=== PATIENT | male | born 1965 | race Caucasian/White ===

== ENCOUNTER 2017-10-17 18:00 | Emergency (ER) | payer SELFPAY ==
[~2017-10-17 18:00] MED LIST: PRED20 PO
[2017-10-17 18:10] VITALS: BP 200/90; PULSE 78; RESP 20; TEMP 99.9; O2SAT 99
[2017-10-17] MEDS ORDERED: ONDANSETRON ODT 4 MG TAB PO ONE (18:45)
[2017-10-17] MEDS ORDERED: ACETAMINOPHEN 325 MG TAB PO ONE (18:45)
--- NOTE | 2017-10-17 19:22 | PD ---
HPI Chief Complaint: Cold / Flu Symptoms Time Seen by Provider: 18:52 Travel History International Travel<30 days: No Contact w/Intl Traveler<30days: No Traveled to known affect area: No History of Present Illness HPI 52-year-old male presents to the ED for evaluation of 4 day history of loose stools, nausea, vomiting, 6/10 left upper abdominal pain. He can identify and no alleviating or exacerbating factors. Onset gradual. Patient endorses chronic sinus pressure, rhinorrhea, nonproductive cough. No worse today. He denies fever, chills, melena, hematochezia. Denies dysuria. He did not receive this years flu shot. He denies sick contacts. Treated at home with Pepto-Bismol with no improvement of symptoms. He endorses occasional alcohol use. Denies history of abdominal surgery. PFSH Past Medical History Hx Anticoagulant Therapy: No Cardiovascular Problems: No High Cholesterol: Yes Chemotherapy: No Cerebrovascular Accident: No Diabetes: No Respiratory: Yes (PLEURISY) ?: Not Past Surgical History Thoracic Surgery: Yes (sx for pleurisy) Other Surgery: Yes (PLEURAL EFFUSION) Social History Alcohol Use: Yes (occ) Tobacco Use: Yes (6-7 cigs per day) Substance Use: Yes Allergies-Medications (Allergen,Severity, Reaction): Coded Allergies: No Known Allergies (Unverified Allergy, Unknown, 10/17/17) Reported Meds & Prescriptions Reported Meds & Active Scripts Active Deltasone (Prednisone) 20 Mg Tab 20 Mg PO BID Review of Systems Except as stated in HPI: all other systems reviewed are Neg Physical Exam Narrative GENERAL: Well-nourished, well-developed white male in no acute distress. SKIN: Focused skin assessment warm/dry. HEAD: Normocephalic. EYES: No scleral icterus. No injection or drainage. NECK: Supple, trachea midline. No JVD or lymphadenopathy. CARDIOVASCULAR: Regular rate and rhythm without murmurs, gallops, or rubs. RESPIRATORY: Breath sounds clear and equal bilaterally. No accessory muscle use. GASTROINTESTINAL: Abdomen soft, nondistended. Tender to palpation in the epigastric area and left upper quadrant. Active bowel sounds. MUSCULOSKELETAL: No cyanosis, or edema. BACK: Nontender without obvious deformity. No CVA tenderness. Data Data Last Documented VS Vital Signs Date Time Temp Pulse Resp B/P (MAP) Pulse Ox O2 Delivery O2 Flow Rate FiO2 10/17/17 18:10 99.9 78 20 200/90 (126) 99 Orders Orders Influenzae A/B Antigen (10/17/17 18:38) Complete Blood Count With Diff (10/17/17 18:38) Comprehensive Metabolic Panel (10/17/17 18:38) Chest, Single Ap (10/17/17 ) Urinalysis - C+S If Indicated (10/17/17 18:38) Ondansetron Odt (Zofran Odt) (10/17/17 18:45) Acetaminophen (Tylenol) (10/17/17 18:45) Lipase (10/17/17 19:16) Ct Abd/Pel W Iv Contrast(Rout) (10/17/17 19:16) Iohexol 350 Inj (Omnipaque 350 Inj) (10/17/17 21:27) Sodium Chlor 0.9% 1000 Ml Inj (Ns 1000 M (10/17/17 22:15) Morphine Inj (Morphine Inj) (10/17/17 22:15) Sodium Chloride 0.9% Flush (Ns Flush) (10/17/17 22:15) Famotidine Inj (Pepcid Inj) (10/17/17 22:15) Labs Laboratory Tests Test 10/17/17 19:21 White Blood Count 10.5 TH/MM3 Red Blood Count 5.41 MIL/MM3 Hemoglobin 14.3 GM/DL Hematocrit 44.2 % Mean Corpuscular Volume 81.7 FL Mean Corpuscular Hemoglobin 26.5 PG Mean Corpuscular Hemoglobin Concent 32.4 % Red Cell Distribution Width 18.6 % Platelet Count 304 TH/MM3 Mean Platelet Volume 7.9 FL Neutrophils (%) (Auto) 80.9 % Lymphocytes (%) (Auto) 14.2 % Monocytes (%) (Auto) 4.1 % Eosinophils (%) (Auto) 0.3 % Basophils (%) (Auto) 0.5 % Neutrophils # (Auto) 8.5 TH/MM3 Lymphocytes # (Auto) 1.5 TH/MM3 Monocytes # (Auto) 0.4 TH/MM3 Eosinophils # (Auto) 0.0 TH/MM3 Basophils # (Auto) 0.1 TH/MM3 CBC Comment DIFF FINAL Differential Comment Blood Urea Nitrogen 15 MG/DL Creatinine 1.73 MG/DL Random Glucose 98 MG/DL Total Protein 8.5 GM/DL Albumin 4.4 GM/DL Calcium Level 9.8 MG/DL Alkaline Phosphatase 142 U/L Aspartate Amino Transf (AST/SGOT) 11 U/L Alanine Aminotransferase (ALT/SGPT) 9 U/L Total Bilirubin 0.6 MG/DL Sodium Level 137 MEQ/L Potassium Level 4.1 MEQ/L Chloride Level 103 MEQ/L Carbon Dioxide Level 26.5 MEQ/L Anion Gap 8 MEQ/L Estimat Glomerular Filtration Rate 42 ML/MIN [facility] Medical Decision Making Medical Screen Exam Complete: Yes Emergency Medical Condition: Yes Differential Diagnosis Gastritis versus pancreatitis versus cholecystitis versus bowel obstruction versus other Narrative Course 52-year-old male presents to the ED for evaluation of 4 day history of loose stools, nausea, vomiting, 6/10 left upper abdominal pain. Patient endorses chronic sinus pressure, rhinorrhea, nonproductive cough, no worse today. He did not receive this years flu shot. He denies sick contacts. He endorses occasional alcohol use. Denies history of abdominal surgery. Temperature 99.9 , BP 200/90 on presentation. On exam the patient is nontoxic appearing. There is tenderness to palpation in the epigastric region and left upper quadrant. Lab work, CT abdomen ordered and pending. Patient was administered ODT Zofran and Tylenol. Patient seen in the ambulance hallway, awaiting medical bed placement. Please see oncoming provider notes for disposition. Jovanna Dodd Oct 17, 2017 19:22
--- NOTE | 2017-10-17 19:36 | RADRPT ---
EXAM DATE/TIME: 10/17/2017 18:51 This report includes an Addendum and supersedes previous reports for this exam. [facility] COMPARISON: No previous studies available for comparison. INDICATIONS : Fever. Flu-like symptoms. MEDICAL HISTORY : None. SURGICAL HISTORY : None. ENCOUNTER: Initial ACUITY: 3 days PAIN SCORE: 3/10 LOCATION: Bilateral chest FINDINGS: A single view of the chest demonstrates the lungs to be symmetrically aerated without evidence of mas s, infiltrate or effusion. The cardiomediastinal contours are unremarkable. Osseous structures are intact. CONCLUSION: No acute disease. Clemente Patel MD on October 17, 2017 at 19:34 Board Certified Radiologist. This report was verified electronically. ADDENDUM: COMPARISON: CT ABDOMEN & PELVIS W/O CONTRAST, March 29, 2014, 15:02. Slight blunting of the left costophrenic angle appears to be chronic. Clemente Patel MD on October 17, 2017 at 19:37 Board Certified Radiologist. This report was verified electronically.
[2017-10-17 20:05] LABS: AUTOMATED NEUTROPHIL # 8.5 TH/MM3 (1.8-7.7); BASOPHIL # 0.1 TH/MM3 (0-0.2); BASOPHIL % 0.5 % (0.0-2.0); EOSINOPHIL % 0.3 % (0.0-4.0); HEMATOCRIT 44.2 % (39.0-51.0); HEMOGLOBIN 14.3 GM/DL (13.0-17.0); LYMPH % 14.2 % (9.0-44.0); LYMPHOCYTE # 1.5 TH/MM3 (1.0-4.8); MEAN CELL VOLUME 81.7 FL (80.0-100.0); MEAN CORPUSCULAR HEMOGLOBIN 26.5 PG (27.0-34.0); MEAN CORPUSCULAR HGB CONC 32.4 % (32.0-36.0); MEAN PLATELET VOLUME 7.9 FL (7.0-11.0); MONO % 4.1 % (0.0-8.0); MONOCYTE # 0.4 TH/MM3 (0-0.9); NEUT % 80.9 % (16.0-70.0); PLATELET COUNT 304 TH/MM3 (150-450); RED BLOOD COUNT 5.41 MIL/MM3 (4.50-5.90); RED CELL DISTRIBUTION WIDTH 18.6 % (11.6-17.2); WHITE BLOOD COUNT 10.5 TH/MM3 (4.0-11.0)
[2017-10-17 20:17] LABS: ALBUMIN 4.4 GM/DL (3.4-5.0); AST (GOT) 11 U/L (15-37); BICARBONATE 26.5 MEQ/L (21.0-32.0); BLOOD UREA NITROGEN 15 MG/DL (7-18); CALCIUM 9.8 MG/DL (8.5-10.1); CHLORIDE 103 MEQ/L (98-107); CREATININE 1.73 MG/DL (0.60-1.30); GLOMERULAR FILTRATION RATE 42 ML/MIN (>89); GLUCOSE,RANDOM 98 MG/DL (74-106); SODIUM (NA) 137 MEQ/L (136-145)
[2017-10-17 20:18] LABS: ALT (GPT) 9 U/L (12-78)
[2017-10-17 20:21] LABS: ALKALINE PHOSPHATASE 142 U/L (45-117); TOTAL BILIRUBIN ADULT 0.6 MG/DL (0.2-1.0); TOTAL PROTEIN 8.5 GM/DL (6.4-8.2)
[2017-10-17] MEDS ORDERED: IOHEXOL 350 MG/ML 10 ML VIAL (for RAD DIAG) IVCONTRAST ONE (21:27)
--- NOTE | 2017-10-17 22:10 | RADRPT ---
EXAM DATE/TIME: 10/17/2017 21:39 [facility] COMPARISON: No previous studies available for comparison. INDICATIONS : Abdomen pain. IV CONTRAST: 70 cc Omnipaque 350 (iohexol) IV ORAL CONTRAST: No oral contrast ingested. RADIATION DOSE: 9.32 CTDIvol (mGy) MEDICAL HISTORY : None SURGICAL HISTORY : None. ENCOUNTER: Initial ACUITY: 3 days PAIN SCALE: 7/10 LOCATION: Bilateral abdomen TECHNIQUE: Volumetric scanning of the abdomen and pelvis was performed. Using automated exposure control and ad justment of the mA and/or kV according to patient size, radiation dose was kept as low as reasonably achievable to obtain optimal diagnostic quality images. DICOM format image data is available electro nically for review and comparison. FINDINGS: LOWER LUNGS: The visualized lower lungs are clear. LIVER: Homogeneous density without lesion. There is no dilation of the biliary tree. No calcified gallston es. SPLEEN: Normal size without lesion. PANCREAS: Within normal limits. KIDNEYS: Normal in size and shape. There is no mass, stone or hydronephrosis. ADRENAL GLANDS: Within normal limits. VASCULAR: There is no aortic aneurysm. BOWEL/MESENTERY: The stomach, small bowel, and colon demonstrate no acute abnormality. There is no free intraperitone al air or fluid. ABDOMINAL WALL: Small fat containing umbilical or periumbilical hernia. RETROPERITONEUM: There is no lymphadenopathy. BLADDER: No wall thickening or mass. REPRODUCTIVE: Within normal limits. INGUINAL: There is no lymphadenopathy or hernia. MUSCULOSKELETAL: Within normal limits for patient age. CONCLUSION: No acute CT findings in the abdomen or pelvis. Small umbilical hernia. Clemente Patel MD on October 17, 2017 at 22:06 Board Certified Radiologist. This report was verified electronically.
[2017-10-17] MEDS ORDERED: FAMOTIDINE 20 MG/2 ML VIAL IV PUSH ONE (22:15)
[2017-10-17] MEDS ORDERED: ONDANSETRON HCL 4 MG/2 ML VIAL IV PUSH ONE (22:15)
[2017-10-17] MEDS ORDERED: MORPHINE SULFATE 2 MG/ML INJ IV PUSH ONE (22:15)
[2017-10-17] MEDS ORDERED: SODIUM CHLOR 0.9% 1000 ML INJ 1,000 ML IV ONE (22:15)
[2017-10-17] MEDS ORDERED: SODIUM CHLORIDE 0.9% FLUSH 10 ML FLUSH IV FLUSH PRN (22:15)
--- NOTE | 2017-10-17 22:17 | PD ---
HPI Chief Complaint: Cold / Flu Symptoms Time Seen by Provider: 21:41 Travel History International Travel<30 days: No Contact w/Intl Traveler<30days: No Traveled to known affect area: No History of Present Illness HPI 52-year-old male complains of abdominal pain with nausea vomiting and loose stool. Patient states that the abdominal pain started about 3 days ago. Patient stated a panic to be a cramping pain localized to upper abdomen epigastric area. Patient denies any pain radiation. Patient started having nausea vomiting and loose stool for the past 2 days. Patient denies any fever chills. Patient denies any dysuria or frequency. Patient denies any back pain. Patient denies any history of abdominal pain in the past. Patient denies any medical problem. Patient denies any alcohol or illicit drug abuse. On a scale of 1-10 the pain is a 9. 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 Patient states that he has not had not been taken any pain medication recently. PFSH Past Medical History Hx Anticoagulant Therapy: No Cardiovascular Problems: No High Cholesterol: Yes Chemotherapy: No Cerebrovascular Accident: No Diabetes: No Respiratory: Yes (PLEURISY) ?: Not Past Surgical History Thoracic Surgery: Yes (sx for pleurisy) Other Surgery: Yes (PLEURAL EFFUSION) Social History Alcohol Use: Yes (occ) Tobacco Use: Yes (6-7 cigs per day) Substance Use: Yes Allergies-Medications (Allergen,Severity, Reaction): Coded Allergies: No Known Allergies (Unverified Allergy, Unknown, 10/17/17) Reported Meds & Prescriptions Reported Meds & Active Scripts Active Deltasone (Prednisone) 20 Mg Tab 20 Mg PO BID Review of Systems General / Constitutional: No: Fever Eyes: No: Visual changes HENT: No: Headaches Cardiovascular: No: Chest Pain or Discomfort Respiratory: No: Shortness of Breath Gastrointestinal: Positive: Nausea, Vomiting, Diarrhea, Abdominal Pain Genitourinary: No: Dysuria Musculoskeletal: No: Pain Skin: No Rash Neurologic: No: Weakness Psychiatric: No: Depression Endocrine: No: Polydipsia Hematologic/Lymphatic: No: Easy Bruising Physical Exam Narrative GENERAL: Well-nourished, well-developed patient. SKIN: Focused skin assessment warm/dry. HEAD: Normocephalic. EYES: No scleral icterus. No injection or drainage. NECK: Supple, trachea midline. No JVD or lymphadenopathy. CARDIOVASCULAR: Regular rate and rhythm without murmurs, gallops, or rubs. RESPIRATORY: Breath sounds equal bilaterally. No accessory muscle use. GASTROINTESTINAL: Abdomen soft, nondistended. Patient has moderate tenderness to palpation epigastric area. No rebound tenderness. No mass. MUSCULOSKELETAL: No cyanosis, or edema. BACK: Nontender without obvious deformity. No CVA tenderness. Neurologic exam normal. Data Data Last Documented VS Vital Signs Date Time Temp Pulse Resp B/P (MAP) Pulse Ox O2 Delivery O2 Flow Rate FiO2 10/17/17 18:10 99.9 78 20 200/90 (126) 99 Orders Orders Influenzae A/B Antigen (10/17/17 18:38) Complete Blood Count With Diff (10/17/17 18:38) Comprehensive Metabolic Panel (10/17/17 18:38) Chest, Single Ap (10/17/17 ) Urinalysis - C+S If Indicated (10/17/17 18:38) Ondansetron Odt (Zofran Odt) (10/17/17 18:45) Acetaminophen (Tylenol) (10/17/17 18:45) Lipase (10/17/17 19:16) Ct Abd/Pel W Iv Contrast(Rout) (10/17/17 19:16) Iohexol 350 Inj (Omnipaque 350 Inj) (10/17/17 21:27) Sodium Chlor 0.9% 1000 Ml Inj (Ns 1000 M (10/17/17 22:15) Morphine Inj (Morphine Inj) (10/17/17 22:15) Sodium Chloride 0.9% Flush (Ns Flush) (10/17/17 22:15) Famotidine Inj (Pepcid Inj) (10/17/17 22:15) Ondansetron Inj (Zofran Inj) (10/17/17 22:15) Labs Laboratory Tests Test 10/17/17 19:21 White Blood Count 10.5 TH/MM3 Red Blood Count 5.41 MIL/MM3 Hemoglobin 14.3 GM/DL Hematocrit 44.2 % Mean Corpuscular Volume 81.7 FL Mean Corpuscular Hemoglobin 26.5 PG Mean Corpuscular Hemoglobin Concent 32.4 % Red Cell Distribution Width 18.6 % Platelet Count 304 TH/MM3 Mean Platelet Volume 7.9 FL Neutrophils (%) (Auto) 80.9 % Lymphocytes (%) (Auto) 14.2 % Monocytes (%) (Auto) 4.1 % Eosinophils (%) (Auto) 0.3 % Basophils (%) (Auto) 0.5 % Neutrophils # (Auto) 8.5 TH/MM3 Lymphocytes # (Auto) 1.5 TH/MM3 Monocytes # (Auto) 0.4 TH/MM3 Eosinophils # (Auto) 0.0 TH/MM3 Basophils # (Auto) 0.1 TH/MM3 CBC Comment DIFF FINAL Differential Comment Blood Urea Nitrogen 15 MG/DL Creatinine 1.73 MG/DL Random Glucose 98 MG/DL Total Protein 8.5 GM/DL Albumin 4.4 GM/DL Calcium Level 9.8 MG/DL Alkaline Phosphatase 142 U/L Aspartate Amino Transf (AST/SGOT) 11 U/L Alanine Aminotransferase (ALT/SGPT) 9 U/L Total Bilirubin 0.6 MG/DL Sodium Level 137 MEQ/L Potassium Level 4.1 MEQ/L Chloride Level 103 MEQ/L Carbon Dioxide Level 26.5 MEQ/L Anion Gap 8 MEQ/L Estimat Glomerular Filtration Rate 42 ML/MIN [facility] Medical Decision Making Medical Screen Exam Complete: Yes Emergency Medical Condition: Yes Interpretation(s) Last Impressions Chest X-Ray 10/17/17 0000 Signed Impressions: Service Date/Time: Tuesday, October 17, 2017 18:51 - CONCLUSION: No acute disease. Clemente Patel MD ADDENDUM: COMPARISON: CT ABDOMEN & PELVIS W/O CONTRAST, March 29, 2014, 15:02. Slight blunting of the left costophrenic angle appears to be chronic. Clemente Patel MD 22:14 PM. CBC within normal limits. Creatinine 1.73. AST 11. ALT 9. Alkaline phosphatase 142. Influenza AB antigen negative. Differential Diagnosis Differential diagnosis including gastroenteritis, gastritis, PUD, pancreatitis, cholecystitis, colitis, UTI, pyelonephritis, nephrolithiasis. Narrative Course 52-year-old male with abdominal pain and nausea vomiting diarrhea. Normal saline solution 1 L IV bolus. Zofran 4 mg IV. Morphine 2 mg IV. Pepcid 20 mg IV. Diagnosis Primary Impression: Abdominal pain Qualified Codes: R10.10 - Upper abdominal pain, unspecified Additional Impression: Gastroenteritis Patient Instructions: General Instructions Additional Instructions: Take medication as directed. Follow-up with personal physician. Return if worse. Med/Other Pt SpecificInfo: Prescription(s) given Scripts Dicyclomine (Bentyl) 10 Mg Cap 10 MG PO TID Y for Bowel Management, #21 CAP 0 Refills Prov: Siddharth Santiago MD 10/17/17 Pantoprazole (Protonix) 40 Mg Tab 40 MG PO DAILY for Reflux, #30 TAB 0 Refills Prov: Siddharth Santiago MD 10/17/17 Ondansetron Odt (Zofran Odt) 4 Mg Tab 4 MG SL Q6HR Y for Nausea/Vomiting, #10 TAB 0 Refills Prov: Siddharth Santiago MD 10/17/17 Disposition: 01 DISCHARGE HOME Condition: Stable Siddharth Santiago MD Oct 17, 2017 22:17
[2017-10-17] MEDS ORDERED: PROT40TA PO (22:23)
[2017-10-17] MEDS ORDERED: DICY10 PO (22:23)
[2017-10-17] MEDS ORDERED: ZOFR4TAB3 SL (22:23)
[2017-10-17 22:44] LABS: BILIRUBIN, URINE NEG (NEG); BLOOD, URINE MOD (NEG); GLUCOSE,URINE NEG (NEG); HYALINE CAST, URINE 18 /lpf (RARE); KETONE, URINE 10 mg/dL (NEG); MUCUS URINE FEW /lpf (OCC); NITRITE,URINE NEG (NEG); PH, URINE 5.5 (5.0-8.5); SQUAMOUS EPITHELIAL CELL URINE <1 /hpf (0-5); URINE COLOR YELLOW (YELLW/STRAW); URINE LEUKOCYTE ESTERASE TRACE (NEG)
== END 2017-10-17 23:21 | disposition home or self-care (01) ==
LOC: NEPD 18:00
DX: K52.9 Noninfective gastroenteritis and colitis, unspecified (principal); E78.00 Pure hypercholesterolemia, unspecified; Z72.0 Tobacco use
CPT/HCPCS: 71045; 74177; 80053; 81001; 83690; 85025; 87804; 96374; 96375; 99285; J2270; J2405; J7030; Q9967

== ENCOUNTER 2018-05-08 11:28 | Inpatient (IN) ==
[2018-05-08] MEDS ORDERED: Tetanus/Diphtheria Toxoid Adult Vaccine Inj 0.5 ML Vial IM ONE (13:25)
[2018-05-08] MEDS ORDERED: Ketorolac Inj 30 MG/ML (IVP) Vial IV.PUSH ONE (13:25)
[2018-05-08] MEDS ORDERED: Sod Chloride 0.9% Inj 1,000 ML IV.SIG SCH ×2 (13:30→16:45)
--- NOTE | 2018-05-08 14:10 | XR ---
EXAM DATE: 05/08/2018 1:52 PM EDT AGE/SEX: 52 years / Male INDICATIONS: Swollen, drainage, feverish right great toe. No known injury. CLINICAL DATA: This is the patient's initial encounter. Patient reports that signs and symptoms have been present for 4 - 6 days and indicates a pain score of 10/10. MEDICAL/SURGICAL HISTORY: None. None. COMPARISON: No prior exams available for comparison. FINDINGS: Erosive changes involving the DIP joint of the first digit that could be gout. Similar erosive change s are seen at the first metatarsal phalangeal joint. Similar degenerative changes are seen at the tar sometatarsal joints. CONCLUSION: Abnormalities as described above. Findings about the great toe could be gout. Correlation suggested. Electronically signed by: Sebas Hill MD 05/08/2018 2:09 PM EDT
[2018-05-08 14:29] LABS: Baso # (Auto) 0.1 th/mm3 (0.0-0.2); Baso % (Auto) 0.5 % (0.0-2.0); Eos # (Auto) 0.2 th/mm3 (0.0-0.4); Eos % (Auto) 2.2 % (0.0-4.0); Hematocrit 38.8 % (39.0-51.0); Hemoglobin 12.9 gm/dL (13.0-17.0); Lymph # (Auto) 1.4 th/mm3 (1.0-4.8); Mean Corpuscular HGB Conc 33.1 % (32.0-36.0); Mean Corpuscular Hemoglobin 29.8 pg (27.0-34.0); Mean Corpuscular Volume 89.9 fL (80.0-100.0); Mean Platelet Volume 8.2 fL (7.0-11.0); Mono # (Auto) 0.8 th/mm3 (0.0-0.9); Mono % (Auto) 7.6 % (0.0-8.0); Neut # (Auto) 8.4 th/mm3 (1.8-7.7); Neut % (Auto) 76.7 % (16.0-70.0); Platelet Count 253 th/mm3 (150-450); Red Blood Count 4.32 mil/mm3 (4.50-5.90); Red Cell Distribution Width 14.3 % (11.6-17.2)
[2018-05-08 14:53] LABS: Alanine Aminotransferase 11 U/L (12-78); Albumin 3.6 g/dL (3.4-5.0); Anion Gap 6 meq/L (5-15); Aspartate Aminotransferase 12 U/L (15-37); Blood Urea Nitrogen 20 mg/dL (7-18); Calcium 9.2 mg/dL (8.5-10.1); Carbon Dioxide 28.5 meq/L (21.0-32.0); Chloride 105 meq/L (98-107); Glomerular Filtration Rate 36 mL/min (>89); Glucose,Random 85 mg/dL (74-106); Potassium 4.3 meq/L (3.5-5.1); Sodium 139 meq/L (136-145)
[2018-05-08 14:56] LABS: Alkaline Phosphatase 121 U/L (45-117); Total Protein 7.9 g/dL (6.4-8.2)
[2018-05-08] MEDS ORDERED: Piperacil/Tazo 3.375 GM Premix 50 ML IV.SIG ONE (15:22)
[2018-05-08] MEDS ORDERED: Vancomycin Inj 1 GM/200 ML PIGGYBACK IV.SIG ONE (15:22)
[2018-05-08] MEDS ORDERED: Morphine Inj 4 MG/ML Vial IV.PUSH ONE (15:28)
--- NOTE | 2018-05-08 15:38 | ED ---
HPI General Chief Complaint: Extremity Injury, Lower Stated Complaint: R Big Toe Time Seen by Provider: 05/08/18 13:09 Source: patient Mode of arrival: ambulatory Limitations: no limitations History of Present Illness HPI Narrative: 52-year-old male, with history of gout, presents to the emergency department with complaint of redness, pain, swelling, drainage coming from his right great toe 3 days. Denies injury. Denies fever, vomiting. Denies paresthesias, loss of sensation to the affected extremity. Unknown tetanus status and needs it updated. Rates pain 5/10. Constantly aggravated. Worse with palpation, ambulation. Has been taking Aleve and took a morphine prior to arrival for symptom management. No primary care provider. No known allergies. History of gout. Denies other significant past medical history. Has no other medical complaints. No other modifying factors or associated signs and symptoms. Related Data Allergies Allergy/AdvReac Type Severity Reaction Status Date / Time No Known Allergies Allergy Verified 05/08/18 12:52 Review of Systems ROS: all other systems reviewed are negative PMFSH History History Provided By: Patient Medical History Medical History Gout (Acute) Pleural effusion (Acute) Surgical History Surgical History S/P thoracotomy (Acute) Family History Family History Other Gout Social History Social History Substance History: Past History Smoking Status: Current every day smoker Recent Travel [facility] within the Last 8 Weeks: No Recent Out of Country Travel within the Last 8 Weeks: No Exam Narrative Exam Narrative: GENERAL: Well-nourished, well-developed male patient, in no acute distress; afebrile, nontoxic-appearing SKIN: Warm and dry. Right foot great toe with extensive erythema and edema extending into the metatarsal region; toe is with 3 small punctuate areas that are draining purulent drainage; toe is fluctuant and the findings are consistent with abscess. Tender on palpation. Right Lower extremity supple and nontender with 2+ pedal pulses and sensory intact. No lymphangitis. HEAD: Atraumatic. Normocephalic. EYES: Pupils equal and round. No scleral icterus. No injection or drainage. ENT: Mucosa pink and moist. No erythema or exudates. NECK: Trachea midline. No lymphadenopathy. CARDIOVASCULAR: Regular rate. RESPIRATORY: No accessory muscle use. GASTROINTESTINAL: Flat. MUSCULOSKELETAL: No obvious deformities. No clubbing. No cyanosis. No edema. NEUROLOGICAL: Awake and alert. Oriented 3. No obvious cranial nerve deficits. Motor grossly within normal limits. Normal speech. Moves all extremities. 5/5 strength to all extremities. PSYCHIATRIC: Appropriate mood and affect; insight and judgment normal. Course Initial Documented Vital Signs Temperature 97.8 F 05/08/18 12:06 Pulse Rate 82 05/08/18 12:06 Respiratory Rate 18 05/08/18 12:06 Blood Pressure 121/65 05/08/18 12:06 Pulse Oximetry 100 05/08/18 12:06 Last Documented Vital Signs Temperature 98.8 F 05/08/18 18:38 Pulse Rate 75 05/08/18 18:38 Respiratory Rate 20 05/08/18 18:38 Blood Pressure 124/76 05/08/18 18:38 Pulse Oximetry 99 05/08/18 18:38 Medical Decision Making MDM Narrative Medical decision making narrative: 52-year-old male, with history of gout, presents to the emergency department with appearance of abscess to his right great toe and right foot cellulitis. The toe has a few open areas that are draining purulent drainage and is extremely swollen, erythematous and hot to touch. The erythema and edema does extend to the metatarsal region of the right foot. No lymphangitis. Patient is afebrile and nontoxic-appearing. IV, IV fluid bolus, CBC, CMP, lactic acid, Toradol, tetanus, wound culture ordered. 1525: I spoke with Dr. Foss, splitter machine and patient will be admitted; recommended indomethacin and indomethacin ordered; agreed with administration of Vanco and Zosyn. BUN 20. Creatinine 1.98. GFR 36. I reviewed up to date for vancomycin dosage and there is no adjustment necessary. I calculated the creatinine clearance using the Cockcroft-Gault and creatinine clearance is 53 mL /min; I reviewed up-to-date for Zosyn dosage and CrCl >40 mL/minute: No dosage adjustment necessary. Vancomycin, Zosyn, indomethacin, morphine, Zofran ordered. Call placed for patient admission. I spoke with ERNIE Diaz and report given for patient admission. Medical Screen Exam Complete: Yes Emergency Medical Condition: Yes Differential Diagnosis Differential Diagnosis: Infectious gouty arthritis, abscess of toe, foot cellulitis, gout attack Lab Data Result diagrams: 05/08/18 13:50 05/08/18 13:50 Lab Results 05/08/18 05/08/18 05/08/18 Range/Units 13:50 13:50 13:50 WBC 11.0 (4.0-11.0) th/mm3 RBC 4.32 L (4.50-5.90) mil/mm3 Hgb 12.9 L (13.0-17.0) gm/dL Hct 38.8 L (39.0-51.0) % MCV 89.9 (80.0-100.0) fL MCH 29.8 (27.0-34.0) pg MCHC 33.1 (32.0-36.0) % RDW 14.3 (11.6-17.2) % Plt Count 253 (150-450) th/mm3 MPV 8.2 (7.0-11.0) fL Neut % (Auto) 76.7 H (16.0-70.0) % Lymph % (Auto) 13.0 (9.0-44.0) % Norman % (Auto) 7.6 (0.0-8.0) % Eos % (Auto) 2.2 (0.0-4.0) % Baso % (Auto) 0.5 (0.0-2.0) % Neut # (Auto) 8.4 H (1.8-7.7) th/mm3 Lymph # (Auto) 1.4 (1.0-4.8) th/mm3 Norman # (Auto) 0.8 (0.0-0.9) th/mm3 Eos # (Auto) 0.2 (0.0-0.4) th/mm3 Baso # (Auto) 0.1 (0.0-0.2) th/mm3 WBC Differential . Differential Comment Auto diff final Sodium 139 (136-145) meq/L Potassium 4.3 (3.5-5.1) meq/L Chloride 105 (98-107) meq/L Carbon Dioxide 28.5 (21.0-32.0) meq/L Anion Gap 6 (5-15) meq/L BUN 20 H (7-18) mg/dL Creatinine 1.98 H (0.60-1.30) mg/dL Estimated GFR 36 L (>89) mL/min Random Glucose 85 (74-106) mg/dL Lactic Acid 1.0 (0.4-2.0) mmol/L Calcium 9.2 (8.5-10.1) mg/dL Total Bilirubin 0.8 (0.2-1.0) mg/dL AST 12 L (15-37) U/L ALT 11 L (12-78) U/L Alkaline Phosphatase 121 H (45-117) U/L Total Protein 7.9 (6.4-8.2) g/dL Albumin 3.6 (3.4-5.0) g/dL Imaging Data Radiologist's impression: Foot X-Ray 05/08/18 13:25 CONCLUSION: Abnormalities as described above. Findings about the great toe could be gout. Correlation suggested. Discharge Plan Discharge Disposition Patient Disposition: 30 Still Patient Discharge Condition Condition: Stable Discharge Details Diagnosis: Abscess of great toe of right foot, Cellulitis of foot, right, Gout attack Physicians Team ED Provider: Felix Verde ED Midlevel Provider: Ivy Arguello Primary Care Provider: Primary Care Cha Yang Attending Provider: Jermain Graves Other Providers: Oxana Foss Status ED Status: Left Department Discharge Information Discharge Date/Time: 05/08/18 18:07
[2018-05-08] MEDS ORDERED: Vancomycin Inj 1,000 MG in Sodium Chlor 0.9% Inj 250 ML IV.SIG ONE (16:00)
--- NOTE | 2018-05-08 16:43 | P.HP ---
History of Present Illness Primary Care Physician: No Primary Care Physician History of Present Illness: 52-year-old white male being admitted for septic arthritis Patient reports being in his usual state of health until about a few days ago and began experiencing increasing pain and swelling in his right toe associated with redness. Worsened with ambulation and progressed with time. Started draining a few days ago and thus decided come to the emergency department today. In the emergency department the patient has stable vital signs, was afebrile, had no leukocytosis. X-ray showed substantial erosions of the MTP joints. Was given vancomycin and Zosyn as well as ketorolac. Patient reports having baseline intermittent pain in his right great toe which he attributes to gout but denies having any puncture injuries in the last couple of days that he can recall. 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 PMF - History History Provided By: Patient - Medical History Medical History: Medical History (Last Updated 05/08/18 @ 16:42 by Jermain Graves MD) Gout Pleural effusion - Surgical History Surgical History: Surgical History (Last Updated 05/08/18 @ 16:43 by Jermain Graves MD) S/P thoracotomy - Family History Family History: Family History (Last Updated 05/08/18 @ 16:41 by Jermain Graves MD) Other Gout - Social History I have reviewed the patient's Social History: Yes - Tobacco History Smoking Status: Current every day smoker - Substance Use History Substance History: Past History - Travel History Recent Travel in the [facility] Within the Last 8 Weeks: No Recent Travel Out of the Country Within the Last 8 Weeks: No Medications and Allergies Active Medications: Active Medications Sodium Chloride (Ns Inj) 1,000 mls @ 0 mls/hr IV.SIG BOLUS [facility] Last Admin: 05/08/18 13:59 Dose: 1,000 mls/hr Vancomycin HCl 1,000 mg/ (Sodium Chloride) 250 mls @ 250 mls/hr IV.SIG ONCE ONE Stop: 05/08/18 16:59 Allergies Allergy/AdvReac Type Severity Reaction Status Date / Time No Known Allergies Allergy Verified 05/08/18 12:52 Exam Vital signs: Vital Signs 05/08/18 12:06 Temperature 97.8 F Pulse Rate 82 Respiratory Rate 18 Blood Pressure 121/65 Pulse Oximetry 100 Intake & Output 05/07/18 05/08/18 05/08/18 18:59 06:59 18:59 Weight 83.915 kg Narrative: VS: afebrile GENERAL: Well-nourished middle-age white male, lying in bed SKIN: Warm and dry. EYES: No scleral icterus. No injection or drainage. ENT: No nasal bleeding or discharge. CARDIOVASCULAR: Regular rate and rhythm. no murmurs RESPIRATORY: No accessory muscle use. Clear to auscultation. Breath sounds equal bilaterally. GASTROINTESTINAL: Abdomen soft, non-tender, nondistended. Extremities: Right great toe has substantial edema and pain with purulent drainage evident, erythema encompasses the entire toe and spans to the midfoot dorsally, remaining toes look normal MUSCULOSKELETAL: adequate muscle bulk and tone for age and habitus NEUROLOGICAL: Awake and alert. No obvious cranial nerve deficits. No facial droop nor slurred speech noted. PSYCHIATRIC: Appropriate mood and affect; insight and judgment normal. Results - Labs CBC & Chem 7: 05/08/18 13:50 05/08/18 13:50 Labs: Laboratory Results - last 24 hr 05/08/18 05/08/18 05/08/18 13:50 13:50 13:50 WBC 11.0 RBC 4.32 L Hgb 12.9 L Hct 38.8 L MCV 89.9 MCH 29.8 MCHC 33.1 RDW 14.3 Plt Count 253 MPV 8.2 Neut % (Auto) 76.7 H Lymph % (Auto) 13.0 [place] % (Auto) 7.6 Eos % (Auto) 2.2 Baso % (Auto) 0.5 Neut # (Auto) 8.4 H Lymph # (Auto) 1.4 [place] # (Auto) 0.8 Eos # (Auto) 0.2 Baso # (Auto) 0.1 WBC Differential . Differential Comment Auto diff final Sodium 139 Potassium 4.3 Chloride 105 Carbon Dioxide 28.5 Anion Gap 6 BUN 20 H Creatinine 1.98 H Estimated GFR 36 L Random Glucose 85 Lactic Acid 1.0 Calcium 9.2 Total Bilirubin 0.8 AST 12 L ALT 11 L Alkaline Phosphatase 121 H Total Protein 7.9 Albumin 3.6 - Imaging Impressions Foot X-Ray 05/08/18 13:25 CONCLUSION: Abnormalities as described above. Findings about the great toe could be gout. Correlation suggested. Caprini VTE Risk Assessment Caprini VTE Risk Assessment: Moderate/High Risk (score >= 2) VTE Pharmacological Exception Reason: High risk for bleeding Scar Risk Assessment Model: Point Value = 1 Point Value = 2 Point Value = 3 Point Value = 5 Age 41-60 Minor surgery BMI > 25 kg/m2 Swollen legs Varicose veins or History of unexplained or recurrent spontaneous Oral contraceptives or hormone replacement Sepsis (< 1 month) Serious lung disease, including pneumonia (< 1 month) Abnormal pulmonary function Acute myocardial infarction Congestive heart failure (< 1 month) History of inflammatory bowel disease Medical patient at bed rest Age 61-74 Arthroscopic surgery Major open surgery (> 45 min) Laparoscopic surgery (> 45 min) Malignancy Confined to bed (> 72 hours) Immobilizing plaster cast Central venous access Age >= 75 History of VTE Family history of VTE Factor V Leiden Prothrombin [id number] Lupus anticoagulant Anticardiolipin antibodies Elevated serum homocysteine Heparin-induced thrombocytopenia Other congenital or acquired thrombophilia Stroke (< 1 month) Elective arthroplasty Hip, pelvis, or leg fracture Acute spinal cord injury (< 1 month) Prophylaxis Regimen: Total Risk Factor Score Risk Level Prophylaxis Regimen 0-1 Low Early ambulation 2 Moderate Order ONE of the following: *Sequential Compression Device (SCD) *Heparin 5000 units SQ BID 3-4 Higher Order ONE of the following medications: *Heparin 5000 units SQ TID *Enoxaparin/Lovenox 40 mg SQ daily (WT < 150 kg, CrCl > 30 mL/min) *Enoxaparin/Lovenox 30 mg SQ daily (WT < 150 kg, CrCl > 10-29 mL/min) *Enoxaparin/Lovenox 30 mg SQ BID (WT < 150 kg, CrCl > 30 mL/min) AND/OR *Sequential Compression Device (SCD) 5 or more Highest Order ONE of the following medications: *Heparin 5000 units SQ TID (Preferred with Epidurals) *Enoxaparin/Lovenox 40 mg SQ daily (WT < 150 kg, CrCl > 30 mL/min) *Enoxaparin/Lovenox 30 mg SQ daily (WT < 150 kg, CrCl > 10-29 mL/min) *Enoxaparin/Lovenox 30 mg SQ BID (WT < 150 kg, CrCl > 30 mL/min) AND *Sequential Compression Device (SCD) Assessment and Plan - Plan 52-year-old white male being admitted for septic toe Acute septic toe Likely immunocompromised from chronic gout -culture obtained and pending Continue vancomycin and Zosyn, morphine as needed for pain Podiatry already contacted by ER, consultation place, I anticipate incision and debridement Acute renal injury We will give bolus as well as continuous fluids, recheck BMP in a.m. SCDs on left foot, none on the right given patient's foot condition and no chemical DVT prophylaxis with possible surgery anticipated.
[2018-05-08] MEDS ORDERED: Vancomycin Consult Pharmacy OTHER PRN (16:49)
[2018-05-08] MEDS: Sod Chloride 0.9% Inj 1,000 ML IV.CONT SCH (18:37)
[2018-05-08] MEDS: Morphine Inj 4 MG/ML Vial IV.PUSH PRN (21:38)
--- NOTE | 2018-05-08 22:37 | P.CONPOD ---
History of Present Illness Service: Foot and Ankle Surgery/Podiatry Consult date: 05/08/18 Reason for Consult: Right hallux abscess Primary Care Provider: No Primary Care Physician Chief Complaint: Right hallux Abscess History of Present Illness: Podiatry consulted for this 52 year old male with right hallux abscess secondary to gout. Patient reports a history of gout to the right hallux. Patient states he does not take medications for gout. He reports a history of substance abuse but has not had any problems lately. He controls his gout through diet and healthy life style. He states he first noticed swelling and redness about a week ago and he has drained the toe multiple times since then. He denies any nausea, vomiting, fevers or chills. Review of Systems All other systems reviewed negative except as stated in HPI PMFSH - History History Provided By: Patient - Medical History Medical History: Medical History (Last Reviewed 05/08/18 @ 22:23 by Oxana Foss DPM) Gout Pleural effusion - Surgical History Surgical History: Surgical History (Last Reviewed 05/08/18 @ 22:23 by Oxana Foss DPM) S/P thoracotomy - Family History Family History: Family History (Last Reviewed 05/08/18 @ 22:23 by Oxana Foss DPM) Other Gout - Tobacco History Second Hand Smoke Exposure: Yes Tobacco Use In Past 30 Days: Yes Smoking Status: Current every day smoker Tobacco Type: Cigarettes - Alcohol History How Often Do You Have a Drink Containing Alcohol: Never - Substance Use History Substance History: Past History - Travel History Recent Travel in the [place] Within the Last 8 Weeks: No Recent Travel Out of the Country Within the Last 8 Weeks: No Medications and Allergies Active Medications: Active Medications Sodium Chloride (Ns Inj) 1,000 mls @ 0 mls/hr IV.SIG BOLUS MIKI Last Infusion: 05/08/18 18:20 Dose: Infused Sodium Chloride (Ns Inj) 1,000 mls @ 100 mls/hr IV.CONT .Q10H [facility] Last Admin: 05/08/18 18:37 Dose: 100 mls/hr Sodium Chloride (Ns Inj) 1,000 mls @ 0 mls/hr IV.SIG BOLUS [facility]KI Piperacillin/Tazobactam/Dextrose (Zosyn 3.375 Gm Premix) 50 mls @ 100 mls/hr IV.SIG Q8H [facility] Vancomycin HCl 1,150 mg/ (Sodium Chloride) 261.5 mls @ 250 mls/hr IV.SIG Q18H [facility] Morphine Sulfate (Morphine Inj) 4 mg IV.PUSH Q4H PRN PRN Reason: PAIN 1-10 Last Admin: 05/08/18 21:38 Dose: 4 mg Pharmacy Profile Note (Vancomycin Consult Pharmacy) 1 each OTHER UNSCH PRN PRN Reason: Pharmacy to dose Sodium Chloride (Ns Flush) 2 ml IV.FLUSH BID [facility] Last Admin: 05/08/18 21:39 Dose: 2 ml Sodium Chloride (Ns Flush) 2 ml IV.FLUSH PRN PRN PRN Reason: FLUSH AFTER USING IV ACCESS Allergies Allergy/AdvReac Type Severity Reaction Status Date / Time No Known Allergies Allergy Verified 05/08/18 12:52 Physical Exam Vital signs: Vital Signs 05/08/18 12:06 05/08/18 17:37 05/08/18 18:38 Temperature 97.8 F 98.8 F Pulse Rate 82 85 75 Respiratory Rate 18 16 20 Blood Pressure 121/65 130/85 124/76 Pulse Oximetry 100 99 Intake & Output 05/08/18 05/08/18 05/09/18 06:59 18:59 06:59 Intake Total 1050 / 1050 250 / 250 Balance 1050 / 1050 250 / 250 Weight 86.3 kg Intake: IV 1050 / 1050 250 / 250 Zosyn 3.375 GM Premix 50 ML @ 50 / 50 100 mls/hr IV.SIG ONCE ONE Rx#: [id number] NS Inj 1,000 ML @ Wide Open IV. 1000 / 1000 SIG BOLUS [facility] Rx#:[id number] Vancomycin Inj 1,000 MG In NS 250 / 250 Inj 250 ML @ 250 mls/hr IV.SIG ONCE ONE Rx#:[id number] Other: Weight On Admission 86.3 kg Narrative: GENERAL: This is a well-nourished, well-developed patient, in no apparent distress. SKIN: Increased edema and erythema to the right hallux with noted drainage of gouty crystals HEAD: Atraumatic. EYES: Pupils equal round and reactive. ENT: Airway patent. NECK: Trachea midline. RESPIRATORY: Nonlabored breathing. MUSCULOSKELETAL:. Negative Homans sign bilaterally. NEUROLOGICAL: Awake and alert. Normal speech. Lower extremity physical exam: Vascular: Dorsalis pedis 2/4, posterior tibial 2/4. Capillary refill time within normal limits to digits X5 bilateral foot. Edema present right hallux extending into metatarsal phalangeal joint Neuro: Gross sensation intact to bilateral lower extremity. Pinpoint sensation intact. No hyperalgesia noted to bilateral lower extremity Dermatology: Increased edema and erythema noted to the right hallux with increased drainage of gouty crystals. Musculoskeletal: Tender to palpation to right hallux into metatarsal phalangeal joint with loss of range of motion Results - Labs CBC & Chem 7: 05/08/18 13:50 05/08/18 13:50 Laboratory Results - last 24 hr 05/08/18 05/08/18 05/08/18 13:50 13:50 13:50 WBC 11.0 RBC 4.32 L Hgb 12.9 L Hct 38.8 L MCV 89.9 MCH 29.8 MCHC 33.1 RDW 14.3 Plt Count 253 MPV 8.2 Neut % (Auto) 76.7 H Lymph % (Auto) 13.0 [place] % (Auto) 7.6 Eos % (Auto) 2.2 Baso % (Auto) 0.5 Neut # (Auto) 8.4 H Lymph # (Auto) 1.4 [place] # (Auto) 0.8 Eos # (Auto) 0.2 Baso # (Auto) 0.1 WBC Differential . Differential Comment Auto diff final Sodium 139 Potassium 4.3 Chloride 105 Carbon Dioxide 28.5 Anion Gap 6 BUN 20 H Creatinine 1.98 H Estimated GFR 36 L Random Glucose 85 Lactic Acid 1.0 Calcium 9.2 Total Bilirubin 0.8 AST 12 L ALT 11 L Alkaline Phosphatase 121 H Total Protein 7.9 Albumin 3.6 - Imaging Impressions Foot X-Ray 05/08/18 13:25 CONCLUSION: Abnormalities as described above. Findings about the great toe could be gout. Correlation suggested. Assessment and Plan - Plan 52 year old male with right hallux abscess secondary to gout/infection To OR tomorrow for incision and drainage of right hallux Will obtain OR cultures Continue with IV abx therapy as well as anti inflammatories Consider Colchicine versus indomethacin NPO after midnight Obtain consent for right foot incision and drainage
[2018-05-09] MEDS: Piperacil/Tazo 3.375 GM Premix 50 ML IV.SIG SCH ×2 (01:44→09:05)
[2018-05-09] MEDS: Morphine Inj 4 MG/ML Vial IV.PUSH PRN ×6 (01:45→23:47)
[2018-05-09] MEDS: Sod Chloride 0.9% Inj 1,000 ML IV.CONT SCH ×3 (05:35→23:48)
[2018-05-09] MEDS ORDERED: Vancomycin Inj 1,150 MG in Sodium Chlor 0.9% Inj 250 ML IV.SIG SCH (10:00)
[2018-05-09 10:24] LABS: Calcium 8.8 mg/dL (8.5-10.1); Carbon Dioxide 28.9 meq/L (21.0-32.0); Potassium 4.3 meq/L (3.5-5.1)
--- NOTE | 2018-05-09 11:47 | P.PNIM ---
Subjective Interval history: 52-year-old white male being admitted for septic arthritis Patient reports being in his usual state of health until about a few days ago and began experiencing increasing pain and swelling in his right toe associated with redness. Worsened with ambulation and progressed with time. Started draining a few days ago and thus decided come to the emergency department today. In the emergency department the patient has stable vital signs, was afebrile, had no leukocytosis. X-ray showed substantial erosions of the MTP joints. Was given vancomycin and Zosyn as well as ketorolac. Patient reports having baseline intermittent pain in his right great toe which he attributes to gout but denies having any puncture injuries in the last couple of days that he can recall. 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 11 TO GO FOR I&D OF RIGHT GREAT TOE WITH PODIATRY LATER TODAY AM LABS CHECK URIC ACID DW RN AND PT AND CM Physical Exam Vital signs: Vital Signs 05/08/18 12:06 05/08/18 17:37 05/08/18 18:38 Temperature 97.8 F 98.8 F Pulse Rate 82 85 75 Respiratory Rate 18 16 20 Blood Pressure 121/65 130/85 124/76 Pulse Oximetry 100 99 05/08/18 20:00 05/09/18 00:00 05/09/18 04:00 Temperature 99.1 F 98 F 98 F Pulse Rate 83 67 71 Respiratory Rate 18 19 18 Blood Pressure 156/83 H 131/72 135/76 Pulse Oximetry 97 100 98 05/09/18 08:00 Temperature 97.8 F Pulse Rate 67 Respiratory Rate 18 Blood Pressure 138/77 Pulse Oximetry 95 Intake & Output 05/08/18 05/09/18 05/09/18 18:59 06:59 18:59 Intake Total 1050 / 1050 1300 / 1300 50 / 50 Output Total 1300 / 1300 Balance 1050 / 1050 0 / 0 50 / 50 Weight 86.3 kg 87.1 kg Intake: IV 1050 / 1050 1300 / 1300 50 / 50 NS Inj 1,000 ML @ 100 mls/hr IV 1000 / 1000 .CONT .Q10H [facility] Rx#:[id number] Zosyn 3.375 GM Premix 50 ML @ 50 / 50 50 / 50 50 / 50 100 mls/hr IV.SIG Q8H [facility] Rx#: [id number] NS Inj 1,000 ML @ Wide Open IV. 1000 / 1000 SIG BOLUS [facility] Rx#:[id number] Vancomycin Inj 1,000 MG In NS 250 / 250 Inj 250 ML @ 250 mls/hr IV.SIG ONCE ONE Rx#:[id number] Output: Urine 1300 / 1300 Other: Date of Last Bowel Movement 05/08/18 Weight On Admission 86.3 kg Narrative: VS: afebrile GENERAL: Well-nourished middle-age white male, lying in bed SKIN: Warm and dry. EYES: No scleral icterus. No injection or drainage. ENT: No nasal bleeding or discharge. CARDIOVASCULAR: Regular rate and rhythm. no murmurs RESPIRATORY: No accessory muscle use. Clear to auscultation. Breath sounds equal bilaterally. GASTROINTESTINAL: Abdomen soft, non-tender, nondistended. Extremities: Right great toe has substantial edema and pain with purulent drainage evident, erythema encompasses the entire toe and spans to the midfoot dorsally, remaining toes look normal MUSCULOSKELETAL: adequate muscle bulk and tone for age and habitus NEUROLOGICAL: Awake and alert. No obvious cranial nerve deficits. No facial droop nor slurred speech noted. PSYCHIATRIC: Appropriate mood and affect; insight and judgment normal. Results - Labs CBC & Chem 7: 05/08/18 13:50 05/09/18 08:49 Laboratory Results - last 24 hr 05/08/18 05/08/18 05/08/18 13:50 13:50 13:50 WBC 11.0 RBC 4.32 L Hgb 12.9 L Hct 38.8 L MCV 89.9 MCH 29.8 MCHC 33.1 RDW 14.3 Plt Count 253 MPV 8.2 Neut % (Auto) 76.7 H Lymph % (Auto) 13.0 [place] % (Auto) 7.6 Eos % (Auto) 2.2 Baso % (Auto) 0.5 Neut # (Auto) 8.4 H Lymph # (Auto) 1.4 [place] # (Auto) 0.8 Eos # (Auto) 0.2 Baso # (Auto) 0.1 WBC Differential . Differential Comment Auto diff final Sodium 139 Potassium 4.3 Chloride 105 Carbon Dioxide 28.5 Anion Gap 6 BUN 20 H Creatinine 1.98 H Estimated GFR 36 L Random Glucose 85 Lactic Acid 1.0 Calcium 9.2 Total Bilirubin 0.8 AST 12 L ALT 11 L Alkaline Phosphatase 121 H Total Protein 7.9 Albumin 3.6 09/11/18 08:49 WBC RBC Hgb Hct MCV MCH MCHC RDW Plt Count MPV Neut % (Auto) Lymph % (Auto) [place] % (Auto) Eos % (Auto) Baso % (Auto) Neut # (Auto) Lymph # (Auto) [place] # (Auto) Eos # (Auto) Baso # (Auto) WBC Differential Differential Comment Sodium 140 Potassium 4.3 Chloride 106 Carbon Dioxide 28.9 Anion Gap 5 BUN 19 H Creatinine 1.91 H Estimated GFR 37 L Random Glucose 81 Lactic Acid Calcium 8.8 Total Bilirubin AST ALT Alkaline Phosphatase Total Protein Albumin Microbiology 05/08/18 13:50 Abscess - Toe Gram Stain - Final - Imaging Impressions Foot X-Ray 05/08/18 13:25 CONCLUSION: Abnormalities as described above. Findings about the great toe could be gout. Correlation suggested. Assessment and Plan - Plan 52-year-old white male being admitted for septic toe Acute septic toe/GOUT Likely immunocompromised from chronic gout -culture obtained and pending Continue vancomycin and Zosyn, morphine as needed for pain Podiatry already contacted by ER, consultation place, I anticipate incision and debridement FOR I&D LATER TODAY 9-11 WILL PROBABLY NEED COLCHICINE VS ALLOPURINOL Acute renal injury We will give bolus as well as continuous fluids, recheck BMP in a.m. RENAL INSUFFICIENCY- FLUIDS AM LABS SCDs on left foot, none on the right given patient's foot condition and no chemical DVT prophylaxis with possible surgery anticipated. Code Status: FULL CODE Discussed Condition With: RN AND PT AND CM Discharge Planning: DC WHEN CLEARED BY PODIATRY
[2018-05-09] MEDS ORDERED: Bupivacaine PF 0.25% Inj 30 ML Vial ONE (12:59)
--- NOTE | 2018-05-09 13:35 | ECG ---
Date Performed: 05/08/2018 Time Performed: 21:30:30 PTAGE: 52 years EKG: Sinus rhythm NORMAL ECG NO PREVIOUS TRACING DOCTOR: Mark Lopes Interpretating Date/Time 05/09/2018 13:30:26
[2018-05-09] MEDS ORDERED: Chlorhexidine Gluconate 2% 1 Pack (2 Cloths) TOPICAL ONE (15:27)
[2018-05-09] MEDS ORDERED: Metoprolol Tartrate 25 MG Tablet PO ONE (15:27)
--- NOTE | 2018-05-09 15:39 | P.PNPOD ---
Subjective Interval history: Patient seen in preop. Agrees with planed procedure. Physical Exam Vital signs: Vital Signs 05/08/18 17:37 05/08/18 18:38 05/08/18 20:00 Temperature 98.8 F 99.1 F Pulse Rate 85 75 83 Respiratory Rate 16 20 18 Blood Pressure 130/85 124/76 156/83 H Pulse Oximetry 99 97 05/09/18 00:00 05/09/18 04:00 05/09/18 08:00 Temperature 98 F 98 F 97.8 F Pulse Rate 67 71 67 Respiratory Rate 19 18 18 Blood Pressure 131/72 135/76 138/77 Pulse Oximetry 100 98 95 05/09/18 12:00 Temperature Pulse Rate 70 Respiratory Rate 18 Blood Pressure 122/70 Pulse Oximetry 99 Intake & Output 05/08/18 05/09/18 05/09/18 18:59 06:59 18:59 Intake Total 1050 / 1050 1300 / 1300 311.5 / 311.5 Output Total 1300 / 1300 Balance 1050 / 1050 0 / 0 311.5 / 311.5 Weight 86.3 kg 87.1 kg Intake: IV 1050 / 1050 1300 / 1300 311.5 / 311.5 NS Inj 1,000 ML @ 100 mls/hr IV 1000 / 1000 .CONT .Q10H [facility] Rx#:[id number] Zosyn 3.375 GM Premix 50 ML @ 50 / 50 50 / 50 50 / 50 100 mls/hr IV.SIG Q8H [facility] Rx#: [id number] NS Inj 1,000 ML @ Wide Open IV. 1000 / 1000 SIG BOLUS [facility] Rx#:[id number] Vancomycin Inj 1,000 MG In NS 250 / 250 Inj 250 ML @ 250 mls/hr IV.SIG ONCE ONE Rx#:[id number] Output: Urine 1300 / 1300 Other: Date of Last Bowel Movement 05/08/18 Weight On Admission 86.3 kg Narrative: Dressing intact to right foot. [employer] under 3 secs to digits x5. 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[employer] ENGLISH ONE Stop: 05/09/18 15:28 Sodium Chloride (Ns Inj) 1,000 mls @ 0 mls/hr IV.SIG BOLUS [facility] Last Infusion: 05/08/18 18:20 Dose: Infused Sodium Chloride (Ns Inj) 1,000 mls @ 100 mls/hr IV.CONT .Q10H [facility] Last Admin: 05/09/18 05:35 Dose: 100 mls/hr Sodium Chloride (Ns Inj) 1,000 mls @ 0 mls/hr IV.SIG BOLUS [facility] Vancomycin HCl 1,150 mg/ (Sodium Chloride) 261.5 mls @ 250 mls/hr IV.SIG Q18H [facility] Last Infusion: 05/09/18 10:54 Dose: Infused Cefepime HCl 2,000 mg/ Sodium (Chloride) 100 mls @ 200 mls/hr IV.SIG Q12H [facility] Lactated Ringer's (Lr 1000 Ml Inj) 1,000 mls @ 30 mls/hr IV.SIG .Q24H [facility] Stop: 05/10/18 15:29 Sodium Chloride (Ns Inj) 500 mls @ 30 mls/hr IV.SIG .Q10H [facility] Metoprolol Tartrate (Lopressor) 25 mg 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 ONE Stop: 05/09/18 15:28 Miscellaneous Information ([facility] Nursing Information) 1 each OTHER ONCE ONE Stop: 05/09/18 15:28 Morphine Sulfate (Morphine Inj) 4 mg IV.PUSH Q4H PRN PRN Reason: PAIN 1-10 Last Admin: 05/09/18 13:56 Dose: 4 mg Pharmacy Profile Note (Vancomycin Consult Pharmacy) 1 each OTHER UNSCH PRN PRN Reason: Pharmacy to dose Povidone Iodine (Betadine 5% Antisepsis Kit) 1 applicatio EACH NARE ASSISTANT PROFESSOR [employer] ENGLISH ONE Stop: 05/09/18 15:28 Sodium Chloride (Ns Flush) 2 ml IV.FLUSH BID MIKI Last Admin: 05/09/18 09:07 Dose: 2 ml Sodium Chloride (Ns Flush) 2 ml IV.FLUSH PRN PRN PRN Reason: FLUSH AFTER USING IV ACCESS Allergies Allergy/AdvReac Type Severity Reaction Status Date / Time No Known Allergies Allergy Verified 05/08/18 12:52 Results - Labs CBC & Chem 7: 05/08/18 13:50 05/09/18 08:49 Laboratory Results - last 24 hr 05/09/18 08:49 Sodium 140 Potassium 4.3 Chloride 106 Carbon Dioxide 28.9 Anion Gap 5 BUN 19 H Creatinine 1.91 H Estimated GFR 37 L Random Glucose 81 Calcium 8.8 Microbiology 05/08/18 13:50 Abscess - Toe Gram Stain - Final 05/08/18 13:50 Abscess - Toe Wound Culture - Preliminary Staphylococcus aureus Assessment and Plan - Plan 52 year old male with right hallux abscess secondary to gout/infection To OR today for incision and drainage of right hallux Will obtain OR cultures Continue with IV abx therapy as well as anti inflammatories Consider Colchicine versus indomethacin NPO after midnight Consent obtained Right foot marked
[2018-05-09] MEDS ORDERED: Phenylephrine/NS 1000 MCG/10ML Syringe IV.PUSH ONE (15:45)
[2018-05-09] MEDS ORDERED: Lidocaine PF 1% Inj 5 ML Syringe OTHER ONE (15:45)
[2018-05-09] MEDS ORDERED: Sodium Chlor 0.9% Inj 500 ML IV.SIG SCH (16:00)
[2018-05-09] MEDS ORDERED: Misc Info for Pharmacy OTHER STA (16:32)
--- NOTE | 2018-05-09 16:32 | P.PCN ---
Date of procedure: 05/09/18 Pre-op diagnosis: Right hallux gout/abscess Post-op diagnosis: same Procedure: Right hallux incision and drainage Anesthesia: HOA Surgeon: Oxana Foss Estimated blood loss (mL): 10 Pathology: other (Gout crystals to path; Wound culture to micro) Condition: stable Disposition: PACU (with VSS and NVS intact to the right hallux)
[2018-05-09] MEDS ORDERED: fentaNYL Citrate Inj 100 MCG/2 ML Ampul ONE (16:42)
--- NOTE | 2018-05-09 17:17 | MR ---
cc: Oxana Foss DPM DATE: 05/09/2018 SURGEON: Oxana Foss DPM STRAND GALVANIZER: None. PREOPERATIVE DIAGNOSIS: Right hallux gout/right hallux abscess. POSTOPERATIVE DIAGNOSIS: Right hallux gout/right hallux abscess. PROCEDURE: Right hallux incision and drainage. ANESTHESIA: General. HEMOSTASIS: None. ESTIMATED BLOOD LOSS: 10 mL. MATERIALS: 2-0 Prolene. INJECTABLES: 20 mL of 0.25% Marcaine plain infiltrated about the right foot. COMPLICATIONS: None. INDICATIONS FOR PROCEDURE: The patient is a 52-year-old male who presented to the ED with increased edema and erythema with noted gouty crystal drainage from the right hallux. The patient states he has had gout since his early 20s and it has been controlled with diet. In the past he has taken Allopurinol; however, he is not taking any medications at this time. The patient does report extreme pain. He denies any nausea, vomiting, fevers, or chills. He denies any IV drug use. The patient agrees with planned procedure, which is incision and drainage of right hallux. He understands all benefits, risks, alternatives, complications associated with the procedure. DESCRIPTION OF PROCEDURE: The patient was brought to the operating room, placed on the operating table in supine position. General anesthesia was then induced. Right foot was prepped and scrubbed in the usual sterile fashion. Attention was then directed to the right hallux where 2 draining sinuses were noticed medial and lateral. An incision was made directly over the hallux approximately 2 cm in length. The incision was deepened through skin and subcutaneous tissue with care to retract all vital neurovascular structures. Blunt dissection was achieved with a hemostat. There was noted to be significant gouty crystal drainage from the toe. No purulent drainage was noted. Drainage and discharge was sent to pathology. Wound culture was obtained and sent to micro. All gouty drainage was drained. Site was copiously irrigated with normal saline. The hallux was packed with 1/4-inch iodoform packing and 2-0 Prolene was applied to the right hallux. Xeroform, 4 x 4's, cast padding, and Carlos were applied to right foot. The patient tolerated the procedure and anesthesia well. He will remain in-house. We will await oral cultures and improvement prior to discharge. SAAD Truong , 04:45 PM , 04:54 PM
[2018-05-10] MEDS: Morphine Inj 4 MG/ML Vial IV.PUSH PRN ×4 (03:57→19:44)
[2018-05-10 08:53] LABS: Baso # (Auto) 0.1 th/mm3 (0.0-0.2); Baso % (Auto) 0.9 % (0.0-2.0); Eos # (Auto) 0.2 th/mm3 (0.0-0.4); Eos % (Auto) 2.8 % (0.0-4.0); Hematocrit 34.3 % (39.0-51.0); Hemoglobin 11.4 gm/dL (13.0-17.0); Lymph # (Auto) 1.1 th/mm3 (1.0-4.8); Lymph % (Auto) 16.6 % (9.0-44.0); Mean Corpuscular HGB Conc 33.3 % (32.0-36.0); Mean Corpuscular Hemoglobin 30.1 pg (27.0-34.0); Mean Corpuscular Volume 90.3 fL (80.0-100.0); Mean Platelet Volume 8.1 fL (7.0-11.0); Mono # (Auto) 0.6 th/mm3 (0.0-0.9); Mono % (Auto) 9.3 % (0.0-8.0); Neut # (Auto) 4.7 th/mm3 (1.8-7.7); Neut % (Auto) 70.4 % (16.0-70.0); Platelet Count 251 th/mm3 (150-450); Red Blood Count 3.79 mil/mm3 (4.50-5.90); Red Cell Distribution Width 13.9 % (11.6-17.2); White Blood Count 6.7 th/mm3 (4.0-11.0)
[2018-05-10 09:28] LABS: Alanine Aminotransferase 10 U/L (12-78); Albumin 2.4 g/dL (3.4-5.0); Alkaline Phosphatase 117 U/L (45-117); Anion Gap 10 meq/L (5-15); Aspartate Aminotransferase 11 U/L (15-37); Blood Urea Nitrogen 22 mg/dL (7-18); Calcium 8.3 mg/dL (8.5-10.1); Carbon Dioxide 24.3 meq/L (21.0-32.0); Chloride 108 meq/L (98-107); Free T4 (Free Thyroxine) 1.37 ng/dL (0.76-1.46); Glomerular Filtration Rate 37 mL/min (>89); Glucose,Random 84 mg/dL (74-106); Magnesium 1.7 mg/dL (1.5-2.5); Potassium 4.3 meq/L (3.5-5.1); Sodium 142 meq/L (136-145); Total Protein 6.6 g/dL (6.4-8.2)
[2018-05-10] MEDS: Sod Chloride 0.9% Inj 1,000 ML IV.CONT SCH ×3 (10:10→19:13)
[2018-05-10] MEDS: oxyCODONE/Acetaminophen 10/325 Tablet PO PRN ×3 (12:10→21:52)
[2018-05-10] MEDS ORDERED: MethylPREDNISolone Sod Succinate Inj 125 MG/2 ML Vial IV.PUSH ONE (12:30)
[2018-05-10] MEDS ORDERED: Naproxen 500 MG Tablet PO ONE (12:30)
[2018-05-10] MEDS: Vancomycin Inj 1,500 MG in Sodium Chlor 0.9% Inj 500 ML IV.SIG SCH (15:10)
[2018-05-10 16:18] LABS: Hemoglobin A1c 5.6 % (4.3-6.0)
--- NOTE | 2018-05-10 16:54 | P.PNIM ---
Subjective Interval history: Pain is not fully controlled. Patient complains of joint pains including bilateral ankles and left knee and left wrist and hand. Gout exacerbation is suspected. Physical Exam Vital signs: Vital Signs 05/09/18 17:00 05/09/18 17:05 05/09/18 20:00 Temperature 97.8 F 98 F Pulse Rate 74 74 82 Respiratory Rate 14 Blood Pressure 124/75 117/70 152/80 H Pulse Oximetry 100 100 98 05/10/18 00:00 05/10/18 04:00 05/10/18 08:00 Temperature 98 F 97.6 F 98 F Pulse Rate 72 68 68 Respiratory Rate 16 18 18 Blood Pressure 127/65 107/63 135/73 Pulse Oximetry 96 95 98 05/10/18 12:00 05/10/18 16:00 Temperature 98.2 F 98.3 F Pulse Rate 80 77 Respiratory Rate 18 18 Blood Pressure 117/64 120/73 Pulse Oximetry 99 96 Intake & Output 05/09/18 05/10/18 05/10/18 18:59 06:59 18:59 Intake Total 1311.5 / 1311.5 1340 / 1340 1000 / 1000 Output Total 800 / 800 Balance 1301.5 / 1301.5 540 / 540 1000 / 1000 Weight 84.7 kg Intake: IV 1011.5 / 1011.5 1100 / 1100 1000 / 1000 NS Inj 1,000 ML @ 100 mls/hr IV 600 / 600 1000 / 1000 1000 / 1000 .CONT .Q10H [facility] Rx#:[id number] Maxipime Inj 2,000 MG In NS Inj 100 / 100 100 / 100 100 ML @ 200 mls/hr IV.SIG Q12H [facility] Rx#:[id number] Zosyn 3.375 GM Premix 50 ML @ 50 / 50 100 mls/hr IV.SIG Q8H [facility] Rx#: [id number] Oral 240 / 240 Anesthesia Amount 300 / 300 Output: Urine 800 / 800 Estimated Blood Loss Other: # Voids 3 Date of Last Bowel Movement 05/08/18 Narrative: GENERAL: NAD, A&Ox3 HEAD: Normocephalic. NECK: Supple, trachea midline. No lymphadenopathy. EYES: No scleral icterus. No injection or drainage. CARDIOVASCULAR: Regular rate and rhythm without murmurs, gallops, or rubs. RESPIRATORY: Breath sounds equal bilaterally. No accessory muscle use. GASTROINTESTINAL: Abdomen soft, non-tender, nondistended. MUSCULOSKELETAL: No cyanosis, or edema. Right foot bandaged. SKIN: Warm and dry. NEURO: No focal neurological deficits. Results - Labs CBC & Chem 7: 05/10/18 07:29 05/10/18 07:29 Laboratory Results - last 24 hr 05/10/18 05/10/18 07:29 07:29 WBC 6.7 RBC 3.79 L Hgb 11.4 L Hct 34.3 L MCV 90.3 MCH 30.1 MCHC 33.3 RDW 13.9 Plt Count 251 MPV 8.1 Neut % (Auto) 70.4 H Lymph % (Auto) 16.6 [place] % (Auto) 9.3 H Eos % (Auto) 2.8 Baso % (Auto) 0.9 Neut # (Auto) 4.7 Lymph # (Auto) 1.1 [place] # (Auto) 0.6 Eos # (Auto) 0.2 Baso # (Auto) 0.1 WBC Differential . Differential Comment Auto diff final Sodium 142 Potassium 4.3 Chloride 108 H Carbon Dioxide 24.3 Anion Gap 10 BUN 22 H Creatinine 1.93 H Estimated GFR 37 L Random Glucose 84 Uric Acid 6.0 Calcium 8.3 L Phosphorus 2.0 L Magnesium 1.7 Total Bilirubin 0.4 AST 11 L ALT 10 L Alkaline Phosphatase 117 Total Protein 6.6 D Albumin 2.4 L D TSH 1.450 Free T4 1.37 Random Vancomycin 9.0 Microbiology 05/09/18 16:04 Wound - Toe Gram Stain - Final 05/09/18 16:04 Wound - Toe Wound Culture - Preliminary Staphylococcus aureus 05/09/18 16:04 Wound - Toe Fungal Smear - Final No fungal elements seen 05/08/18 13:50 Abscess - Toe Gram Stain - Final 05/08/18 13:50 Abscess - Toe Wound Culture - Final Staphylococcus aureus Assessment and Plan - Plan 52-year-old white male being admitted for Right Hallux Abscess and right foot cellulitis Right Hallux Abscess right foot cellulitis Vancomycin Zosyn Podiatry Following Status post I&D Gout Exacerbation NSAID Prednisone Follow for improvement GORGE Follow renal function DVT Prophylaxis SCDs
[2018-05-10] MEDS ORDERED: Pharmacy Ordered Lab Info OTHER ONE (21:45)
[2018-05-10] MEDS: Naproxen 250 MG Tablet PO SCH (21:52)
--- NOTE | 2018-05-10 22:23 | P.PNPOD ---
Subjective Interval history: Patient seen bedside post op day 1. States his pain is not well controlled and he is feeling better however is in still a significant amount of pain. Physical Exam Vital signs: Vital Signs 05/10/18 00:00 05/10/18 04:00 05/10/18 08:00 Temperature 98 F 97.6 F 98 F Pulse Rate 72 68 68 Respiratory Rate 16 18 18 Blood Pressure 127/65 107/63 135/73 Pulse Oximetry 96 95 98 05/10/18 12:00 05/10/18 16:00 05/10/18 20:00 Temperature 98.2 F 98.3 F 97.7 F Pulse Rate 80 77 70 Respiratory Rate 18 18 19 Blood Pressure 117/64 120/73 122/62 Pulse Oximetry 99 96 94 L Intake & Output 05/10/18 05/10/18 05/11/18 06:59 18:59 06:59 Intake Total 1340 / 1340 1960 / 1960 615 / 615 Output Total 800 / 800 1575 / 1575 Balance 540 / 540 385 / 385 615 / 615 Weight 84.7 kg Intake: IV 1100 / 1100 1000 / 1000 615 / 615 NS Inj 1,000 ML @ 100 mls/hr IV 1000 / 1000 1000 / 1000 .CONT .Q10H [facility] Rx#:[id number] Maxipime Inj 2,000 MG In NS Inj 100 / 100 100 / 100 100 ML @ 200 mls/hr IV.SIG Q12H [facility] Rx#:[id number] Vancomycin Inj 1,500 MG In NS 515 / 515 Inj 500 ML @ 250 mls/hr IV.SIG Q24H [facility] Rx#:[id number] Oral 240 / 240 960 / 960 Output: Urine 800 / 800 1575 / 1575 Narrative: Decreased erythema and edema noted to right hallux with continued drainage of gouty crystals/fluids. Receeding erythema to first MPJ. Packing in place. Medications and Allergies Active Medications: Active Medications Sodium Chloride (Ns Inj) 1,000 mls @ 100 mls/hr IV.CONT .Q10H [facility] Last Admin: 05/10/18 19:13 Dose: Not Given Sodium Chloride (Ns Inj) 1,000 mls @ 0 mls/hr IV.SIG BOLUS [facility] Cefepime HCl 2,000 mg/ Sodium (Chloride) 100 mls @ 200 mls/hr IV.SIG Q12H [facility] Last Infusion: 05/10/18 19:13 Dose: Infused Sodium Chloride (Ns Inj) 500 mls @ 30 mls/hr IV.SIG .Q10H [facility] Last Admin: 05/09/18 18:13 Dose: Not Given Vancomycin HCl 1,500 mg/ (Sodium Chloride) 515 mls @ 250 mls/hr IV.SIG Q24H [facility] Last Infusion: 05/10/18 19:14 Dose: Infused Miscellaneous Information ([facility] Ordered Lab Info) 1 each OTHER ONCE [facility] Morphine Sulfate (Morphine Inj) 4 mg IV.PUSH Q4H PRN PRN Reason: PAIN 1-10 Last Admin: 05/10/18 19:44 Dose: 4 mg Naproxen (Naprosyn) 250 mg PO BID [facility] Last Admin: 05/10/18 21:52 Dose: 250 mg Oxycodone/Acetaminophen (Percocet 10/325 Mg) 1 tab PO Q4H PRN PRN Reason: Pain 7 to 10 Last Admin: 05/10/18 21:52 Dose: 1 tab Oxycodone/Acetaminophen (Percocet 5/325 Mg) 1 tab PO Q4H PRN PRN Reason: Pain 3 to 6 Pharmacy Profile Note (Vancomycin Consult Pharmacy) 1 each OTHER UNSCH PRN PRN Reason: Pharmacy to dose Prednisone (Deltasone) 20 mg PO DAILY [facility] Stop: 05/12/18 23:59 Sodium Chloride (Ns Flush) 2 ml IV.FLUSH BID [facility] Last Admin: 05/10/18 21:53 Dose: Not Given Sodium Chloride (Ns Flush) 2 ml IV.FLUSH PRN PRN PRN Reason: FLUSH AFTER USING IV ACCESS Allergies Allergy/AdvReac Type Severity Reaction Status Date / Time No Known Allergies Allergy Verified 05/08/18 12:52 Results - Labs CBC & Chem 7: 05/10/18 07:29 05/10/18 07:29 Laboratory Results - last 24 hr 05/10/18 05/10/18 05/10/18 07:29 07:29 07:29 WBC 6.7 RBC 3.79 L Hgb 11.4 L Hct 34.3 L MCV 90.3 MCH 30.1 MCHC 33.3 RDW 13.9 Plt Count 251 MPV 8.1 Neut % (Auto) 70.4 H Lymph % (Auto) 16.6 [place] % (Auto) 9.3 H Eos % (Auto) 2.8 Baso % (Auto) 0.9 Neut # (Auto) 4.7 Lymph # (Auto) 1.1 [place] # (Auto) 0.6 Eos # (Auto) 0.2 Baso # (Auto) 0.1 WBC Differential . Differential Comment Auto diff final Sodium 142 Potassium 4.3 Chloride 108 H Carbon Dioxide 24.3 Anion Gap 10 BUN 22 H Creatinine 1.93 H Estimated GFR 37 L Random Glucose 84 Hemoglobin A1c 5.6 Uric Acid 6.0 Calcium 8.3 L Phosphorus 2.0 L Magnesium 1.7 Total Bilirubin 0.4 AST 11 L ALT 10 L Alkaline Phosphatase 117 Total Protein 6.6 D Albumin 2.4 L D TSH 1.450 Free T4 1.37 Random Vancomycin 9.0 Microbiology 05/09/18 16:04 Wound - Toe Gram Stain - Final 05/09/18 16:04 Wound - Toe Wound Culture - Preliminary Staphylococcus aureus 05/09/18 16:04 Wound - Toe Fungal Smear - Final No fungal elements seen 05/08/18 13:50 Abscess - Toe Gram Stain - Final 05/08/18 13:50 Abscess - Toe Wound Culture - Final Staphylococcus aureus Assessment and Plan - Plan 52 year old male with right hallux abscess secondary to gout/infection s/p right hallux Incision and Drainage Right hallux to be irrigated and packed daily will place wound care orders Will re evaluate prior to discharge Abx per OR cultures Continue with Prednisone and NSAIDs Pain control per hospitalist
[2018-05-11] MEDS: Morphine Inj 4 MG/ML Vial IV.PUSH PRN ×5 (02:32→22:52)
[2018-05-11] MEDS: Sod Chloride 0.9% Inj 1,000 ML IV.CONT SCH ×2 (04:22→14:28)
[2018-05-11] MEDS: oxyCODONE/Acetaminophen 10/325 Tablet PO PRN ×4 (07:42→20:56)
[2018-05-11] MEDS: Naproxen 250 MG Tablet PO SCH ×2 (10:27→20:56)
[2018-05-11] MEDS: predniSONE 20 MG Tablet PO SCH (10:28)
--- NOTE | 2018-05-11 14:16 | P.PNIM ---
Subjective Interval history: Pain not fully controlled when ambulating, but he is comfortable at rest with foot elevated. He is not interested in increasing his pain treatment. No distress when seen. Physical Exam Vital signs: Vital Signs 05/10/18 16:00 05/10/18 20:00 05/11/18 00:00 Temperature 98.3 F 97.7 F 97.4 F L Pulse Rate 77 70 63 Respiratory Rate 18 19 16 Blood Pressure 120/73 122/62 111/65 Pulse Oximetry 96 94 L 95 05/11/18 04:00 05/11/18 08:00 05/11/18 12:00 Temperature 97.3 F L 98.2 F 97.6 F Pulse Rate 65 75 80 Respiratory Rate 20 20 20 Blood Pressure 126/73 135/80 111/62 Pulse Oximetry 96 96 97 Intake & Output 05/10/18 05/11/18 05/11/18 18:59 06:59 18:59 Intake Total 1960 / 1960 2076 / 2076 100 / 100 Output Total 1575 / 1575 750 / 750 Balance 385 / 385 1326 / 1326 100 / 100 Weight 87.8 kg Intake: IV 1000 / 1000 1615 / 1615 100 / 100 NS Inj 1,000 ML @ 100 mls/hr IV 1000 / 1000 1000 / 1000 .CONT .Q10H [facility] Rx#:[id number] Maxipime Inj 2,000 MG In NS Inj 100 / 100 100 / 100 100 ML @ 200 mls/hr IV.SIG Q12H [facility] Rx#:[id number] Vancomycin Inj 1,500 MG In NS 515 / 515 Inj 500 ML @ 250 mls/hr IV.SIG Q24H [facility] Rx#:[id number] Oral 960 / 960 461 / 461 Output: Urine 1575 / 1575 750 / 750 Other: Date of Last Bowel Movement 05/11/18 Narrative: GENERAL: NAD, A&Ox3 HEAD: Normocephalic. NECK: Supple, trachea midline. No lymphadenopathy. EYES: No scleral icterus. No injection or drainage. CARDIOVASCULAR: Regular rate and rhythm without murmurs, gallops, or rubs. RESPIRATORY: Breath sounds equal bilaterally. No accessory muscle use. GASTROINTESTINAL: Abdomen soft, non-tender, nondistended. MUSCULOSKELETAL: No cyanosis, or edema. Right foot bandaged. SKIN: Warm and dry. NEURO: No focal neurological deficits. Results - Labs CBC & Chem 7: 05/10/18 07:29 05/10/18 07:29 Laboratory Results - last 24 hr 05/10/18 07:29 Hemoglobin A1c 5.6 Microbiology 05/09/18 16:04 Wound - Toe Gram Stain - Final 05/09/18 16:04 Wound - Toe Wound Culture - Final Staphylococcus aureus Assessment and Plan - Plan 52-year-old white male being admitted for Right Hallux Abscess and right foot cellulitis Right Hallux Abscess right foot cellulitis Vancomycin Zosyn Staph aureus, sensitive to Bactrim on culture Podiatry Following Status post I&D Gout Exacerbation NSAID Prednisone Follow for improvement GORGE Follow renal function DVT Prophylaxis SCDs DC Planning Awaiting podiatry clearance
[2018-05-11] MEDS: Vancomycin Inj 1,500 MG in Sodium Chlor 0.9% Inj 500 ML IV.SIG SCH (14:29)
[2018-05-12] MEDS: Sod Chloride 0.9% Inj 1,000 ML IV.CONT SCH ×5 (01:00→23:07)
[2018-05-12] MEDS: oxyCODONE/Acetaminophen 10/325 Tablet PO PRN ×5 (01:00→23:07)
[2018-05-12] MEDS: Morphine Inj 4 MG/ML Vial IV.PUSH PRN ×4 (03:24→20:58)
--- NOTE | 2018-05-12 09:28 | P.PNIM ---
Subjective Interval history: Nausea/vomiting present this morning. No changes in regards to the patient's foot wound. Pain controlled while at rest. Physical Exam Vital signs: Vital Signs 05/11/18 12:00 05/11/18 16:00 05/11/18 20:00 Temperature 97.6 F 97.8 F 97.7 F Pulse Rate 80 69 67 Respiratory Rate 20 20 20 Blood Pressure 111/62 122/66 141/74 H Pulse Oximetry 97 97 100 05/12/18 04:00 Temperature 97.5 F L Pulse Rate 60 Respiratory Rate 20 Blood Pressure 138/78 Pulse Oximetry 100 Intake & Output 05/11/18 05/12/18 05/12/18 18:59 06:59 18:59 Intake Total 2415 / 2415 1597 / 1597 Output Total 1000 / 1000 Balance 1415 / 1415 1597 / 1597 Weight 87.3 kg Intake: IV 1715 / 1715 1597 / 1597 NS Inj 1,000 ML @ 100 mls/hr IV 1000 / 1000 1497 / 1497 .CONT .Q10H [facility] Rx#:[id number] Maxipime Inj 2,000 MG In NS Inj 200 / 200 100 / 100 100 ML @ 200 mls/hr IV.SIG Q12H [facility] Rx#:[id number] Vancomycin Inj 1,500 MG In NS 515 / 515 Inj 500 ML @ 250 mls/hr IV.SIG Q24H [facility] Rx#:[id number] Oral 700 / 700 Output: Urine 1000 / 1000 Other: Date of Last Bowel Movement 05/11/18 Narrative: GENERAL: NAD, A&Ox3 HEAD: Normocephalic. NECK: Supple, trachea midline. No lymphadenopathy. EYES: No scleral icterus. No injection or drainage. CARDIOVASCULAR: Regular rate and rhythm without murmurs, gallops, or rubs. RESPIRATORY: Breath sounds equal bilaterally. No accessory muscle use. GASTROINTESTINAL: Abdomen soft, non-tender, nondistended. MUSCULOSKELETAL: No cyanosis, or edema. Right foot bandaged. SKIN: Warm and dry. NEURO: No focal neurological deficits. Results - Labs CBC & Chem 7: 05/10/18 07:29 05/10/18 07:29 Microbiology 05/09/18 16:04 Wound - Toe Acid Fast Bacilli Smear - Final No acid fast bacilli seen 05/09/18 16:04 Wound - Toe Gram Stain - Final 05/09/18 16:04 Wound - Toe Wound Culture - Final Staphylococcus aureus Assessment and Plan - Plan 52-year-old white male being admitted for Right Hallux Abscess and right foot cellulitis Nausea/vomiting As needed Zofran added Follow for improvement IV hydration Right Hallux Abscess right foot cellulitis Vancomycin Zosyn Staph aureus, sensitive to Bactrim on culture Podiatry Following Status post I&D Gout Exacerbation NSAID Prednisone Follow for improvement GORGE Follow renal function DVT Prophylaxis SCDs DC Planning Awaiting podiatry clearance
[2018-05-12] MEDS: predniSONE 20 MG Tablet PO SCH (09:38)
[2018-05-12] MEDS: Naproxen 250 MG Tablet PO SCH ×2 (09:38→21:00)
--- NOTE | 2018-05-12 13:10 | P.PNPOD ---
Subjective Interval history: s/p Right foot I and D secondary to septic gout. Better this am. Seen with nursing staff Physical Exam Vital signs: Vital Signs 05/11/18 16:00 05/11/18 20:00 05/12/18 04:00 Temperature 97.8 F 97.7 F 97.5 F L Pulse Rate 69 67 60 Respiratory Rate 20 20 20 Blood Pressure 122/66 141/74 H 138/78 Pulse Oximetry 97 100 100 05/12/18 08:00 Temperature 97.5 F L Pulse Rate 50 L Respiratory Rate 20 Blood Pressure 171/100 H Pulse Oximetry 99 Intake & Output 05/11/18 05/12/18 05/12/18 18:59 06:59 18:59 Intake Total 2415 / 2415 1597 / 1597 503 / 503 Output Total 1000 / 1000 Balance 1415 / 1415 1597 / 1597 503 / 503 Weight 87.3 kg Intake: IV 1715 / 1715 1597 / 1597 503 / 503 NS Inj 1,000 ML @ 100 mls/hr IV 1000 / 1000 1497 / 1497 503 / 503 .CONT .Q10H [facility] Rx#:[id number] Maxipime Inj 2,000 MG In NS Inj 200 / 200 100 / 100 100 ML @ 200 mls/hr IV.SIG Q12H [facility] Rx#:[id number] Vancomycin Inj 1,500 MG In NS 515 / 515 Inj 500 ML @ 250 mls/hr IV.SIG Q24H [facility] Rx#:[id number] Oral 700 / 700 Output: Urine 1000 / 1000 Other: Date of Last Bowel Movement 05/11/18 Narrative: Right LE Incision x 2 , no active drainage, no puruelnce and no gout tophi. Decrease in swelling and no streaking. + POP. NVS unchanged. Medications and Allergies Active Medications: Active Medications Sodium Chloride (Ns Inj) 1,000 mls @ 100 mls/hr IV.CONT .Q10H [facility] Last Infusion: 05/12/18 12:00 Dose: Infused Sodium Chloride (Ns Inj) 1,000 mls @ 0 mls/hr IV.SIG BOLUS [facility] Cefepime HCl 2,000 mg/ Sodium (Chloride) 100 mls @ 200 mls/hr IV.SIG Q12H [facility] Last Infusion: 05/12/18 05:57 Dose: Infused Sodium Chloride (Ns Inj) 500 mls @ 30 mls/hr IV.SIG .Q10H [facility] Last Admin: 05/09/18 18:13 Dose: Not Given Vancomycin HCl 1,500 mg/ (Sodium Chloride) 515 mls @ 250 mls/hr IV.SIG Q24H [facility] Last Infusion: 05/11/18 17:19 Dose: Infused Sodium Chloride (Ns Inj) 1,000 mls @ 84 mls/hr IV.CONT .[id number] [facility] Last Admin: 05/12/18 12:01 Dose: 84 mls/hr Metronidazole/Sodium Chloride (Flagyl 500 Mg Inj) 100 mls @ 100 mls/hr IV.SIG Q8H [facility] Last Admin: 05/12/18 11:50 Dose: 100 mls/hr Lorazepam (Ativan Inj) 1 mg IV.PUSH Q6H PRN PRN Reason: BREAKTHROUGH NAUSEA Miscellaneous Information ([facility] Ordered Lab Info) 1 each OTHER ONCE [facility] Morphine Sulfate (Morphine Inj) 4 mg IV.PUSH Q4H PRN PRN Reason: PAIN 1-10 Last Admin: 05/12/18 12:15 Dose: 4 mg Naproxen (Naprosyn) 250 mg PO BID [facility] Last Admin: 05/12/18 09:38 Dose: 250 mg Ondansetron HCl (Zofran Inj) 4 mg IV.PUSH Q6H PRN PRN Reason: NAUSEA Last Admin: 05/12/18 11:48 Dose: 4 mg Oxycodone/Acetaminophen (Percocet 10/325 Mg) 1 tab PO Q4H PRN PRN Reason: Pain 7 to 10 Last Admin: 05/12/18 09:38 Dose: 1 tab Oxycodone/Acetaminophen (Percocet 5/325 Mg) 1 tab PO Q4H PRN PRN Reason: Pain 3 to 6 Pharmacy Profile Note (Vancomycin Consult Pharmacy) 1 each OTHER UNSCH PRN PRN Reason: Pharmacy to dose Prednisone (Deltasone) 20 mg PO DAILY [facility] Stop: 05/12/18 23:59 Last Admin: 05/12/18 09:38 Dose: 20 mg Sodium Chloride (Ns Flush) 2 ml IV.FLUSH BID [facility] Last Admin: 05/12/18 11:47 Dose: 2 ml Sodium Chloride (Ns Flush) 2 ml IV.FLUSH PRN PRN PRN Reason: FLUSH AFTER USING IV ACCESS Allergies Allergy/AdvReac Type Severity Reaction Status Date / Time No Known Allergies Allergy Verified 05/08/18 12:52 Results - Labs CBC & Chem 7: 05/10/18 07:29 05/10/18 07:29 Microbiology 05/09/18 16:04 Wound - Toe Acid Fast Bacilli Smear - Final No acid fast bacilli seen 05/09/18 16:04 Wound - Toe Gram Stain - Final 05/09/18 16:04 Wound - Toe Wound Culture - Final Staphylococcus aureus Assessment and Plan - Assessment (1) Abscess of great toe of right foot Code(s): L02.611 - Cutaneous abscess of right foot Status: Acute (2) Cellulitis of foot, right Code(s): L03.115 - Cellulitis of right lower limb Status: Acute (3) Gout attack Code(s): M10.9 - Gout, unspecified Status: Acute - Plan OK to d/c per Podiatry D/C with 2 weeks of bactrim Recommend begin Allopurinol qd F/U with Dr Crouch with in 1 weeks of d/c Dressing changed 05/12/18 (3) Gout attack Qualifiers: Gout site: unspecified site Gout etiology: unspecified cause Qualified Code( s): M10.9 - Gout, unspecified
[2018-05-12] MEDS ORDERED: Pharmacy Ordered Lab Info OTHER SCH (14:45)
[2018-05-12 14:54] LABS: Alanine Aminotransferase 28 U/L (12-78); Albumin 2.5 g/dL (3.4-5.0); Alkaline Phosphatase 141 U/L (45-117); Anion Gap 7 meq/L (5-15); Aspartate Aminotransferase 25 U/L (15-37); Blood Urea Nitrogen 25 mg/dL (7-18); Calcium 8.8 mg/dL (8.5-10.1); Carbon Dioxide 23.1 meq/L (21.0-32.0); Chloride 113 meq/L (98-107); Glomerular Filtration Rate 42 mL/min (>89); Glucose,Random 90 mg/dL (74-106); Sodium 143 meq/L (136-145)
[2018-05-12 15:05] LABS: Baso % (Auto) 0.3 % (0.0-2.0); Eos % (Auto) 0.3 % (0.0-4.0); Hematocrit 36.8 % (39.0-51.0); Hemoglobin 11.8 gm/dL (13.0-17.0); Lymph # (Auto) 1.9 th/mm3 (1.0-4.8); Mean Corpuscular HGB Conc 32.1 % (32.0-36.0); Mean Corpuscular Hemoglobin 29.5 pg (27.0-34.0); Mean Corpuscular Volume 91.9 fL (80.0-100.0); Mean Platelet Volume 7.6 fL (7.0-11.0); Mono # (Auto) 0.8 th/mm3 (0.0-0.9); Mono % (Auto) 6.5 % (0.0-8.0); Neut # (Auto) 9.7 th/mm3 (1.8-7.7); Neut % (Auto) 77.9 % (16.0-70.0); Platelet Count 297 th/mm3 (150-450); Red Blood Count 4.01 mil/mm3 (4.50-5.90); Red Cell Distribution Width 14.6 % (11.6-17.2); White Blood Count 12.4 th/mm3 (4.0-11.0)
[2018-05-12] MEDS: Vancomycin Inj 1,500 MG in Sodium Chlor 0.9% Inj 500 ML IV.SIG SCH (18:16)
[2018-05-13] MEDS: Morphine Inj 4 MG/ML Vial IV.PUSH PRN ×3 (01:08→10:22)
[2018-05-13] MEDS: oxyCODONE/Acetaminophen 10/325 Tablet PO PRN ×3 (03:15→12:17)
[2018-05-13] MEDS: Sod Chloride 0.9% Inj 1,000 ML IV.CONT SCH ×2 (06:15→09:27)
[2018-05-13] MEDS: Naproxen 250 MG Tablet PO SCH (09:23)
--- NOTE | 2018-05-13 11:32 | P.DS ---
Date of admission: 05/08/18 16:51 Primary care physician: No Primary Care Physician Brief History from admission: 52-year-old white male being admitted for septic arthritis Patient reports being in his usual state of health until about a few days ago and began experiencing increasing pain and swelling in his right toe associated with redness. Worsened with ambulation and progressed with time. Started draining a few days ago and thus decided come to the emergency department today. In the emergency department the patient has stable vital signs, was afebrile, had no leukocytosis. X-ray showed substantial erosions of the MTP joints. Was given vancomycin and Zosyn as well as ketorolac. Patient reports having baseline intermittent pain in his right great toe which he attributes to gout but denies having any puncture injuries in the last couple of days that he can recall. 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 DS: Medications - Discharge Medications Prescriptions: allopurinol 100 mg PO BID #60 tab Lactobacillus acidophilus 500 mmu cells PO TID #30 cap metronidazole [Flagyl] 500 mg PO TID #6 tab oxycodone-acetaminophen 1 tab PO Q6H PRN #20 tab PRN Reason: Pain 7 to 10 prednisone 1 pack PO PER PKG DIR #1 pack promethazine [Phenergan] 25 mg [place] Q6H PRN #10 ea PRN Reason: Nausea sulfamethoxazole-trimethoprim [Bactrim DS] 1 tab PO BID #20 tab DS: Summary Hospital Course: Mr. Currie is a 52-year-old male. He has a past history of gout. She came in the hospital after having cellulitis of his right foot with pain in his right first toe. Initially he thought this was gout. Findings are consistent with cellulitis and he has an abscess within the right first toe. Podiatry was consulted, incision and drainage is performed. Wound is monitored postop and he is cleared yesterday for discharge. However, patient had nausea and vomiting yesterday morning and throughout the day. Discharge was held but nausea and vomiting have resolved today. Patient's medically clear and stable for discharge home today. - Time Spent with Patient Total time spent providing and/or coordinating discharge services: Less than 30 minutes - Quality: VTE Deep Vein Thrombosis/Pulmonary Embolism Present on Admission: No Exam Vital signs: Vital Signs 05/12/18 12:00 05/12/18 16:00 05/12/18 20:00 Temperature 98.2 F 97.9 F 97.7 F Pulse Rate 53 L 56 L 45 L Respiratory Rate 20 20 18 Blood Pressure 175/98 H 177/102 H 155/74 H Pulse Oximetry 100 100 96 05/13/18 00:00 05/13/18 04:00 05/13/18 08:00 Temperature 97.9 F 97.3 F L 97.3 F L Pulse Rate 45 L 49 L 43 L Respiratory Rate 18 18 16 Blood Pressure 140/81 139/87 147/83 H Pulse Oximetry 97 99 100 Intake & Output 05/12/18 05/13/18 05/13/18 18:59 06:59 18:59 Intake Total 2743 / 2743 2055 / 2055 1000 / 1000 Balance 2743 / 2743 2054 / 2054 1000 / 1000 Weight 87.5 kg Intake: IV 703 / 703 1815 / 1815 1000 / 1000 NS Inj 1,000 ML @ 84 mls/hr IV. 503 / 503 1000 / 1000 1000 / 1000 CONT .[id number] [facility]KI Rx#:[id number] Maxipime Inj 2,000 MG In NS Inj 100 / 100 100 / 100 100 ML @ 200 mls/hr IV.SIG Q12H [facility] Rx#:[id number] Vancomycin Inj 1,500 MG In NS 515 / 515 Inj 500 ML @ 250 mls/hr IV.SIG Q24H [facility]KI Rx#:[id number] Flagyl 500 MG Inj 100 ML @ 100 100 / 100 200 / 200 mls/hr IV.SIG Q8H [facility]KI Rx#: [id number] Oral 500 / 500 240 / 240 Other 1540 / 1540 Other: # Voids 2 2 # Bowel Movements 1 0 Results Procedures completed during hospitalization: Incision and drainage of right first toe Labs on day of discharge: Labs from last 24 hours 05/12/18 05/12/18 05/12/18 15:35 13:40 13:40 WBC 12.4 H RBC 4.01 L Hgb 11.8 L Hct 36.8 L MCV 91.9 MCH 29.5 MCHC 32.1 RDW 14.6 Plt Count 297 MPV 7.6 Neut % (Auto) 77.9 H Lymph % (Auto) 15.0 Braxton % (Auto) 6.5 Eos % (Auto) 0.3 Baso % (Auto) 0.3 Neut # (Auto) 9.7 H Lymph # (Auto) 1.9 Braxton # (Auto) 0.8 Eos # (Auto) 0.0 Baso # (Auto) 0.0 WBC Differential . Differential Comment Auto diff final Sodium 143 Potassium 4.0 Chloride 113 H Carbon Dioxide 23.1 Anion Gap 7 BUN 25 H Creatinine 1.73 H Estimated GFR 42 L Random Glucose 90 Calcium 8.8 Total Bilirubin 0.2 AST 25 ALT 28 Alkaline Phosphatase 141 H Total Protein 7.0 Albumin 2.5 L Vancomycin Trough 13.4 H Preliminary micro results at discharge 05/12/18 13:40 Aerobic Blood Culture - Preliminary Blood - Peripheral No growth in 1 day Anaerobic Blood Culture - Preliminary No growth in 1 day 05/12/18 13:40 Aerobic Blood Culture - Preliminary Blood - Peripheral No growth in 1 day Anaerobic Blood Culture - Preliminary No growth in 1 day - Impressions ITS Impressions Foot X-Ray 05/08/18 13:25 CONCLUSION: Abnormalities as described above. Findings about the great toe could be gout. Correlation suggested. Discharge Plan - Discharge Disposition Patient Disposition: 01 Discharge Home - Discharge Condition Condition: Stable - Discharge Details Anticipated Discharge Date: 05/13/18 Discharge Comment: May discharge after lunch, if no vomiting - Physicians Team Primary Care Provider: Primary Care Physici,No Attending Provider: Adrian Dunn Other Providers: Oxana Foss DPM
[2018-05-13] MEDS ORDERED: Pharmacy Ordered Lab Info OTHER ONE (14:45)
== END 2018-05-13 16:06 | disposition home or self-care (01) ==
LOC: NEPB 11:28 → NEDA 16:51 → N04 18:17
PROVIDERS: ADMIT Hospitalist; ATTEND Hospitalist